=== PATIENT | male | born 1960 | race Caucasian/White ===

== ENCOUNTER 2021-04-28 11:04 | Outpatient (REF) | payer MEDICARE, SELFPAY ==
--- NOTE | ~2021-04-28 | XR_ITS ---
EXAMINATION: XR WRIST, RIGHT CLINICAL INFORMATION: Pain COMPARISON: None TECHNIQUE: PA, lateral, and oblique views of the right wrist. FINDINGS: Bone alignment is normal. No fracture or dislocation is seen. There are cysts in the third metacarpal head, lunate and trapezium and scaphoid bones. Joint spaces are normal. Soft tissues are normal. XR/XR wrist RT min 3V IMPRESSION: Multiple small cysts in the carpal bones. Otherwise unremarkable exam.
== END 2021-04-28 11:05 | disposition home or self-care (01) ==
LOC: HO.HMGCX 11:04
PROVIDERS: Visit Provider Physician Assistant
DX: M25.531 Pain in right wrist (principal)
CPT/HCPCS: 73110